=== PATIENT | male | born 1995 | race African-American/Black ===

== ENCOUNTER 2019-10-20 01:33 | Emergency (ER) | payer SELFPAY ==
[~2019-10-20] VITALS: Ht 188 cm; Wt 110.0 kg
[2019-10-20] MEDS ORDERED: SODIUM CHLORIDE 0.9% 1,000 ML IV ONE (02:33)
[2019-10-20] MEDS ORDERED: IBUPROFEN 600MG TABLET PO STA (02:33)
[2019-10-20] MEDS ORDERED: HYDROCODONE/ACETAMINOPHEN 5/325MG TABLET PO ONE (02:45)
[2019-10-20 03:02] LABS: BASOPHILS % 0.3 % (0.0-2.0); EOSINOPHILS % 0.3 % (0.0-5.0); HEMATOCRIT. 42.3 % (42.0-52.0); HEMOGLOBIN. 14.4 g/dL (14.0-18.0); LYMPHOCYTES % 11.5 % (20.0-50.0); MEAN CORPUSCULAR HEMOGLOBIN 28.1 pg (28.0-32.0); MEAN CORPUSCULAR VOLUME 82.3 fL (80.0-94.0); MEAN PLATELET VOLUME 8.3 fl (7.4-10.4); MONOCYTES % 8.9 % (2.0-8.0); PLATELET 227 x1000/uL (130-400); RED BLOOD CELL COUNT 5.14 mill/uL (4.7-6.1); RED CELL DISTRIBUTION WIDTH 13.7 % (11.6-14.6)
[2019-10-20 03:10] LABS: CHLORIDE 108 mEq/L (98-107)
[2019-10-20 03:11] LABS: INR 1.1; PARTIAL THROMBOPLASTIN TIME 28.3 sec (23.4-31.0); PROTHROMBIN TIME 11.5 sec (9.6-11.0)
[2019-10-20 03:16] LABS: CLARITY URINE CLOUDY (CLEAR); COLOR URINE BLOODY (YELLOW); KETONES URINE TRACE (NEGATIVE); LEUKOCYTE ESTERASE URINE 1+ (NEGATIVE); NITRITE URINE NEGATIVE (NEGATIVE); OCCULT BLOOD URINE 3+ (NEGATIVE); PH URINE 5.5 (4.5-8.0); PROTEIN URINE 2+ (NEGATIVE); SPECIFIC GRAVITY URINE 1.011 (1.005-1.030); UROBILINOGEN URINE 0.2 E.U./dL (0.2-1.0)
[2019-10-20] MEDS ORDERED: IOHEXOL-300 100 ML BOTTLE ONE (05:31)
[2019-10-20 06:25] VITALS: BP 141/86
== END 2019-10-20 06:32 | disposition home or self-care (01) ==
LOC: ER 01:33
DX: S37.012A Minor contusion of left kidney, initial encounter (principal); R31.9 Hematuria, unspecified; R10.9 Unspecified abdominal pain; F12.10 Cannabis abuse, uncomplicated; Z86.73 Personal history of transient ischemic attack (TIA), and cerebral infarction without residual deficits; V49.88XA Car occupant (driver) (passenger) injured in other specified transport accidents, initial encounter; Y93.89 Activity, other specified; Y92.89 Other specified places as the place of occurrence of the external cause; Y99.8 Other external cause status
CPT/HCPCS: 36415; 71045; 71100; 74177; 76705; 80053; 81003; 85025; 85610; 85730; 99284; J7030; Q9967

== ENCOUNTER 2019-10-21 22:27 | Emergency (ER) | payer SELFPAY ==
[~2019-10-21] VITALS: Ht 188 cm; Wt 110.0 kg
[2019-10-21 23:08] LABS: CLARITY URINE CLOUDY (CLEAR); COLOR URINE YELLOW (YELLOW); KETONES URINE TRACE (NEGATIVE); LEUKOCYTE ESTERASE URINE NEGATIVE (NEGATIVE); NITRITE URINE NEGATIVE (NEGATIVE); OCCULT BLOOD URINE 3+ (NEGATIVE); PH URINE 6.5 (4.5-8.0); PROTEIN URINE NEGATIVE (NEGATIVE); SPECIFIC GRAVITY URINE 1.025 (1.005-1.030)
[2019-10-22 00:46] LABS: CHLORIDE 107 mEq/L (98-107)
[2019-10-22 01:16] VITALS: BP 118/70
== END 2019-10-22 01:27 | disposition home or self-care (01) ==
LOC: ER 22:27
DX: R82.81 Pyuria (principal); R31.9 Hematuria, unspecified
CPT/HCPCS: 36415; 80048; 81003; 99283